=== PATIENT | male | born 1975 | race Caucasian/White ===

== ENCOUNTER 2016-08-24 18:05 | Emergency (ER) | payer OTHER ==
[2016-08-24 18:15] VITALS: TEMP 98
--- NOTE | 2016-08-24 18:47 | EDPHY ---
H & P Time Seen by Provider: 08/24/16 18:17 HPI/ROS: 40-year-old male presents complaining of rash to his right hip extending to his right groin. He was seen 2 days ago by his family practice doctor who diagnosed shingles and started him on Valtrex however he was uncertain of that diagnosis and felt it was more likely to be flea bites, because his dogs have had fleas. He did have chickenpox as a child. No fevers or chills Review of systems As per HPI General no fever no chills no weakness HEENT no eye pain no eye discharge. No eye redness, no sore throat Respiratory no cough, no shortness of breath Cardiac no chest pain, no peripheral edema GI no abdominal pain, no diarrhea, no constipation, no nausea, no vomiting no flank pain, no hematuria, no dysuria Musculoskeletal no myalgias, no joint pain Heme no easy bruising, no easy bleeding Endo no polyuria, no polydipsia Skin positive rashes, no pruritus Neuro no syncope, no dizziness, no headaches Psych is no suicidal ideation, no homicidal ideation Past Medical/Surgical History: Seizure disorder Smoking Status: Never smoked Physical Exam: 40-year-old male Alert and oriented in no acute distress nontoxic appearance, afebrile Atraumatic normocephalic Neck no JVD Lungs clear to auscultation, no respiratory distress Heart regular rate and rhythm Extremities no cyanosis clubbing edema Skin right hip scattered erythematous macular patches some with crusted areas, no current vesicles Positive right inguinal lymphadenopathy Does not extend to scrotum Rash appears to be in an L2 and/or L3 distribution Constitutional: Initial Vital Signs Temperature (C) 36.6 C 08/24/16 18:13 Heart Rate 72 08/24/16 18:13 Respiratory Rate 18 08/24/16 18:13 Blood Pressure 145/98 H 08/24/16 18:13 O2 Sat (%) 97 08/24/16 18:13 O2 Delivery Mode Room Air Allergies/Adverse Reactions: Sulfa (Sulfonamide Antibiotics) Allergy (Verified 08/24/16 18:12) Home Medications: Medication Instructions Recorded [id number] 08/24/16 Depakote 08/24/16 Valacyclovir HCl [Valtrex] 1,000 mg PO TID #21 tab 08/24/16 Medical Decision Making ED Course/Re-evaluation: Medical decision making and ER course Patient seen and evaluated for rash to right hip extending right groin Differential diagnosis considered Insect bite, shingles Impression Shingles Plan Valtrex 1000 mg p.o. three times daily x7 days Follow-up PCP Return if high fever, purulent drainage, significantly worsened rash or pain Departure - Departure Disposition: Home, Routine, Self-Care Clinical Impression: Shingles Condition: Good Instructions: Shingles (ED), Shingles Vaccine (ED) Referrals: COY WEEKS MD [Other] - As per Instructions Prescriptions: Valacyclovir HCl [Valtrex] 1,000 mg PO TID #21 tab
[2016-08-24 19:44] VITALS: BP 130/94; PULSE 70; RESP 16; O2SAT 94
== END 2016-08-24 18:52 | disposition home or self-care (01) ==
LOC: CED 18:05
DX: B02.9 Zoster without complications (principal)